=== PATIENT | female | born 1965 | race Caucasian/White ===

== ENCOUNTER 2018-09-18 10:53 | Inpatient (IN) | payer OTHER ==
[2018-09-18 11:20] VITALS: BMI 25.7
--- NOTE | 2018-09-18 14:28 | HP ---
COWS - Scale Resting Pulse: 0= [place] 80 or Below Sweatin= Chills/Flushing Restless Observation: 1= Difficult to Sit Still Pupil Size: 0= Normal to Room Light Bone or Joint Aches: 2= Severe Diffuse Aches Runny Nose/ Eye Tearin= Runny Nose/Eyes GI Upset > 30mins: 2= Nausea/Diarrhea Tremor Observation: 2= Slight Tremor Visible Yawning Observation: 1= 1-2x During Session Anxiety or Irritability: 1=Feels Anxious/Irritable Goose Flesh Skin: 3=Piloerection COWS Score: 15 Admission ROS BHS - HPI Chief Complaint: I want to get off the methadone - my counselor said it was ok - I want to get off the xanax too Allergies/Adverse Reactions: Allergies Allergy/AdvReac Type Severity Reaction Status Date / Time Penicillins Allergy Severe Swelling Verified 09/18/18 14:24 History of Present Illness: 52 yo woman here for detox from xanax and methadone. She is on [facility] Methadone Program, 20mg, last dosed two days ago, wants to be detoxed off the methadone but did not bring a letter from her program, does not have bottle - they are closed now (2:30pm ) and also closed tomorrow ([phone]). I called the [facility] doctor assistant gm of content & delivery to leave a message [phone] about the patient but did not receive a call back. Urine tox + bzo, + methadone. Denies seizures, no overdoses or black outs. Asking for detox from xanax but on valium 5mg tid from psych which she does not abuse (verified by [facility], Rx picked up 08/29/19). States she does not drink alcohol. Discussed with patient we can admit her for methadone detox but it will start tomorrow and she agrees. She states she is compliant with her psych meds. Contact will need to be made with [facility] and her psychiatrist on Thursday to discuss treatment plan especially with regard to the benzodiazepine use. Exam Limitations: Clinical Condition - Ebola screening Have you traveled outside of the country in the last 21 days: No (N) Have you had contact with anyone from an Ebola affected area: No Have you been sick,other than usual withdrawal symptoms: No Do you have a fever: No - Review of Systems Constitutional: Chills, Loss of Appetite, Night Sweats, Changes in sleep, Weakness EENT: reports: Nose Congestion Respiratory: reports: No Symptoms reported Cardiac: reports: No Symptoms Reported GI: reports: Nausea, Poor Appetite : reports: Dysuria Musculoskeletal: reports: Back Pain, Muscle Pain Integumentary: reports: No Symptoms Reported Neuro: reports: Headache, Tremors Endocrine: reports: No Symptoms Reported Hematology: reports: No Symptoms Reported Psychiatric: reports: Judgement Intact, Mood/Affect Appropiate, Orientated x3, Anxious Other Systems: Reviewed and Negative Patient History - Patient Medical History Hx Asthma: No Hx Chronic Obstructive Pulmonary Disease (COPD): No Hx Cancer: No Hx Cardiac Disorders: No Hx Congestive Heart Failure: No Hx Hypertension: No Hx Hypercholesterolemia: No HX Cerebrovascular Accident: No Hx Seizures: No Hx Diabetes: No Hx Gastrointestinal Disorders: No Hx Liver Disease: No Hx Genitourinary Disorders: No Hx Sexually Transmitted Disorders: No Hx Renal Disease (ESRD): No Hx Thyroid Disease: No Hx Human Immunodeficiency Virus (HIV): No Hx Hepatitis C: No Hx Depression: Yes (hospitalized once [facility]) Hx Suicide Attempt: No Hx Bipolar Disorder: Yes - Patient Surgical History Past Surgical History: Yes Hx Abdominal Surgery: Yes (fallopian tubes removed 1998, 1999) - PPD History Previous Implant?: Yes Documented Results: Negative w/o proof Implanted On Prior [facility] Admission?: No PPD to be Administered?: Yes - Reproductive History Patient is a Female of Child Bearing Age (11 -55 yrs old): Yes - Smoking Cessation Smoking history: Current every day smoker Have you smoked in the past 12 months: Yes Aproximately how many cigarettes per day: 5 Hx Chewing Tobacco Use: No Initiated information on smoking cessation: Yes 'Breaking Loose' booklet given: 09/18/18 (give on floor) - Substance & Tx. History Hx Alcohol Use: No Hx Substance Use: Yes Substance Use Type: Heroin, Opiates, Tranquilizers Hx Substance Use Treatment: Yes (methadone program [facility], [facility]) - Substances Abused xanax Route: Oral Frequency: Daily Amount used: two four mg sticks Age of first use: 51 Date of Last Use: 09/17/18 Family Disease History - Family Disease History Family Disease History: Diabetes: Mother (living , ), Other: Father (, murdered), Mother, Brother (one living - healthy), Daughter (age 26, healthy) Admission Physical Exam [facility] - Vital Signs Vital Signs: Vital Signs - 24 hr 09/18/18 11:19 Temperature 98.9 F Pulse Rate 77 Respiratory 18 Rate Blood Pressure 149/80 - Physical General Appearance: Yes: Nourished, Appropriately Dressed, Moderate Distress, Tremorous, Anxious HEENTM: Yes: EOMI, Hearing grossly Normal, Normocephalic, Normal Voice, Pharynx Normal, Nasal Congestion Respiratory: Yes: Normal Breath Sounds, No Respiratory Distress Neck: Yes: No masses,lesions,Nodules Breast: Yes: Breast Exam Deferred Cardiology: Yes: Regular Rhythm, Regular Rate Abdominal: Yes: Soft Genitourinary: Yes: Within Normal Limits Back: Yes: Normal Inspection Musculoskeletal: Yes: full range of Motion, Gait Steady, Back pain Extremities: Yes: Normal Inspection, Normal Range of Motion Neurological: Yes: Fully Oriented, Alert, Motor Strength 5/5, Normal Mood/Affect , Normal Response Integumentary: Yes: Normal Color, Warm Lymphatic: Yes: Within Normal Limits - Diagnostic (1) Opioid dependence with withdrawal Current Visit: Yes Status: Chronic (2) Sedative, hypnotic or anxiolytic dependence with withdrawal, uncomplicated Current Visit: Yes Status: Chronic (3) Nicotine dependence Current Visit: Yes Status: Acute Qualifiers: Nicotine product type: cigarettes Substance use status: uncomplicated Qualified Code(s): F17.210 - Nicotine dependence, cigarettes, uncomplicated Cleared for Admission [facility] - Detox or Rehab [facility] Level of Care: Medically Managed Detox Regimen/Protocol: Methadone Screened but not Admitted - Documentation of Visit Alternative Treatment/Correction Info Provided: Yes [facility] Breath Alcohol Content Breath Alcohol Content: 0 Urine Pregancy Test - Result Urine Test Results: Negative- NO Line Present Urine Drug Screen - Results Drug Screen Negative: No Urine Drug Screen Results: BZO-Benzodiazepines, MTD-Methadone
[2018-09-18] MEDS ORDERED: MAGNESIUM HYDROX 2400MG/30ML ORAL SUSPENSION 30 ML CUP PO PRN (15:31)
[2018-09-18] MEDS ORDERED: MAG HYDROX/AL HYDROX/SIMETH 30 ML UNIT-DOSE CUP PO PRN (15:31)
[2018-09-18] MEDS ORDERED: MENTHOL/PHENOL 1 EACH UD MM PRN (15:31)
[2018-09-18] MEDS ORDERED: LOPERAMIDE HCL 2 MG CAPSULE PO PRN (15:31)
[2018-09-18] MEDS ORDERED: diazePAM 5 MG TABLET PO PRN (15:31)
[2018-09-18] MEDS ORDERED: guaiFENesin/D-METHORPHAN HB 10 ML UNIT-DOSE CUPS PO PRN (15:31)
[2018-09-18] MEDS ORDERED: P-EPHED 60MG/TRIPROLIDI 2.5MG TABLET PO PRN (15:31)
[2018-09-18] MEDS ORDERED: IBUPROFEN 400 MG TABLET (FP) PO PRN (15:31)
[2018-09-18] MEDS ORDERED: MAGNESIUM CITRATE 300 ML BOTTLE PO PRN (15:31)
[2018-09-18] MEDS ORDERED: diazePAM 5 MG TABLET PO ONE (17:15)
[2018-09-18] MEDS: diazePAM 5 MG TABLET PO SCH ×2 (18:58→22:29)
[2018-09-18] MEDS: NICOTINE 21 MG/24 HOURS TOPICAL PATCH TD SCH (18:58)
[2018-09-18] MEDS ORDERED: NICOTINE POLACRILEX 2 MG GUM BUC PRN (19:15)
[2018-09-18] MEDS ORDERED: METHADONE HCL 10 MG TABLET (FOR DETOX USE ONLY) PO ONE ×2 (21:53→23:00)
--- NOTE | 2018-09-18 21:56 | PN ---
[facility] Progress Note Note: methadone detox orders changed to start today/ now. ldm was methadone 20 mg on 09/16/2018 confirmed by rn Haleigh pompa w/ [facility] patient reconfirmed that she wants to be detoxed off her methadone
[2018-09-18] MEDS ORDERED: MELATONIN 5 MG TABLETS PO PRN (22:00)
[2018-09-18] MEDS: MIRTAZAPINE 15 MG TABLET (FP) PO SCH (22:29)
[2018-09-18] MEDS: LITHIUM CARBONATE 300 MG CAPSULE (FP) PO SCH (22:29)
[2018-09-18] MEDS: THIAMINE HCL 100 MG TABLET (FP) PO SCH (22:30)
[2018-09-19] MEDS: diazePAM 5 MG TABLET PO SCH ×3 (06:00→22:43)
[2018-09-19] MEDS ORDERED: METHADONE HCL 10 MG TABLET (FOR DETOX USE ONLY) PO SCH (10:00)
[2018-09-19] MEDS ORDERED: METHADONE HCL 10 MG TABLET (FOR DETOX USE ONLY) PO ONE (10:00)
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
[2018-09-19 10:57] LABS: HEMATOCRIT 42.2 % (32.4-45.2); HEMOGLOBIN 13.4 GM/dL (10.7-15.3); MCH 27.4 pg (25.7-33.7); MCHC 31.6 g/dl (32.0-36.0); MEAN CELL VOLUME 86.6 fl (80-96); MEAN PLT VOLUME 7.9 fl (7.5-11.1); PLATELET COUNT 291 K/MM3 (134-434); RBC 4.88 M/mm3 (3.60-5.2); RDW 13.8 % (11.6-15.6); WHITE BLOOD COUNT 7.3 K/mm3 (4.0-10.0)
[2018-09-19 11:06] LABS: ALBUMIN 3.5 g/dl (3.4-5.0); ALK PHOS 78 U/L (45-117); ANION GAP 5 MMOL/L (8-16); BILIRUBIN,TOTAL 0.6 mg/dL (0.2-1); BLOOD UREA NITROGEN 16 mg/dL (7-18); CHLORIDE 105 mmol/L (98-107); CO2 27 mmol/L (21-32); CREATININE 0.8 mg/dL (0.55-1.3); GLUCOSE,RANDOM 122 mg/dL (74-106); POTASSIUM 4.1 mmol/L (3.5-5.1); SGOT/AST 10 U/L (15-37); SGPT/ALT 23 U/L (13-61); SODIUM 137 mmol/L (136-145); TOT PROT 6.4 g/dl (6.4-8.2)
[2018-09-19] MEDS: PRENATAL VITAMINS W/ FOLIC ACID TABLET (FP) PO SCH (11:30)
[2018-09-19] MEDS: NICOTINE 21 MG/24 HOURS TOPICAL PATCH TD SCH (11:30)
[2018-09-19] MEDS: ACETAMINOPHEN 325 MG TABLET (FP) PO PRN (11:32)
[2018-09-19] MEDS: LITHIUM CARBONATE 300 MG CAPSULE (FP) PO SCH ×2 (12:36→22:43)
--- NOTE | 2018-09-19 14:24 | PN ---
[facility] CIWA - CIWA Score Nausea/Vomitin-No Nausea/No Vomiting Muscle Tremors: 3 Anxiety: 3 Agitation: 3 Paroxysmal Sweats: 1-Minimal Palms Moist Orientation: 1-Uncertain about Date Tacttile Disturbances: 0-None Auditory Disturbances: 0-None Visual Disturbances: 0-None Headache: 2-Mild CIWA-Ar Total Score: 13 [facility]HS COWS - Scale Resting Pulse: 0= [place] 80 or Below Sweatin= Chills/Flushing Restless Observation: 1= Difficult to Sit Still Pupil Size: 0= Normal to Room Light Bone or Joint Aches: 1= Mild Discomfort Runny Nose/ Eye Tearin= Nasal Congestion GI Upset > 30mins: 2= Nausea/Diarrhea Tremor Observation of Outstretched Hands: 2= Slight Tremor Visible Yawning Observation: 1= 1-2x During Session Anxiety or Irritability: 1=Feels Anxious/Irritable Goose Flesh Skin: 0=Smooth Skin COWS Score: 10 [facility] Progress Note (SOAP) Subjective: patient is able to describe her feelings toward addiction to xanax and methadone patient said that she is on methadone program for a long time and is doing very well and is time to off the methadone patient fears of xanax addiction combination of bipolar disorder that anxiety and depression conquer her will to be sobered reported sweating tremor anxiety and restlessness took a shower and feeling calm patient stated that she will never hurt herself that "I will never do that to my mother" Objective: 09/19/18 14:34 Vital Signs Temperature 97.7 F 09/19/18 09:58 Pulse Rate 60 09/19/18 09:58 Respiratory Rate 18 09/19/18 09:58 Blood Pressure 122/56 L 09/19/18 09:58 O2 Sat by Pulse Oximetry (%) Laboratory Last Values WBC 7.3 K/mm3 (4.0-10.0) 09/19/18 07:50 RBC 4.88 M/mm3 (3.60-5.2) 09/19/18 07:50 Hgb 13.4 GM/dL (10.7-15.3) 09/19/18 07:50 Hct 42.2 % (32.4-45.2) 09/19/18 07:50 MCV 86.6 fl (80-96) 09/19/18 07:50 MCH 27.4 pg (25.7-33.7) 09/19/18 07:50 MCHC 31.6 g/dl (32.0-36.0) L 09/19/18 07:50 RDW 13.8 % (11.6-15.6) 09/19/18 07:50 Plt Count 291 K/MM3 (134-434) 09/19/18 07:50 MPV 7.9 fl (7.5-11.1) 09/19/18 07:50 Sodium 137 mmol/L (136-145) 09/19/18 07:50 Potassium 4.1 mmol/L (3.5-5.1) 09/19/18 07:50 Chloride 105 mmol/L (98-107) 09/19/18 07:50 Carbon Dioxide 27 mmol/L (21-32) 09/19/18 07:50 Anion Gap 5 MMOL/L (8-16) L 09/19/18 07:50 BUN 16 mg/dL (7-18) 09/19/18 07:50 Creatinine 0.8 mg/dL (0.55-1.3) 09/19/18 07:50 Creat Clearance w eGFR > 60 (>60) 09/19/18 07:50 Random Glucose 122 mg/dL (74-106) H 09/19/18 07:50 Calcium 9.0 mg/dL (8.5-10.1) 09/19/18 07:50 Total Bilirubin 0.6 mg/dL (0.2-1) 09/19/18 07:50 AST 10 U/L (15-37) L 09/19/18 07:50 ALT 23 U/L (13-61) 09/19/18 07:50 Alkaline Phosphatase 78 U/L (45-117) 09/19/18 07:50 Total Protein 6.4 g/dl (6.4-8.2) 09/19/18 07:50 Albumin 3.5 g/dl (3.4-5.0) 09/19/18 07:50 RPR Titer Nonreactive (NONREACTIVE) 09/19/18 07:50 lab noted Assessment: 09/19/18 14:40 withdrawal sx Plan: continue detox flu shot
[2018-09-19] MEDS ORDERED: FLU VACCINE QUAD 60 MCG/0.5 ML (MDV 18-19) IM ONE ×2 (14:30→15:00)
[2018-09-19] MEDS: MIRTAZAPINE 15 MG TABLET (FP) PO SCH (22:43)
[2018-09-19] MEDS: THIAMINE HCL 100 MG TABLET (FP) PO SCH (22:44)
[2018-09-20] MEDS: ACETAMINOPHEN 325 MG TABLET (FP) PO PRN (09:04)
[2018-09-20] MEDS ORDERED: METHADONE HCL 5 MG TABLET (FOR DETOX USE ONLY) PO SCH (10:00)
[2018-09-20] MEDS ORDERED: METHADONE HCL 5 MG TABLET (FOR DETOX USE ONLY) PO ONE (10:00)
[2018-09-20] MEDS: diazePAM 5 MG TABLET PO SCH ×2 (10:57→22:35)
[2018-09-20] MEDS: NICOTINE 21 MG/24 HOURS TOPICAL PATCH TD SCH (10:57)
[2018-09-20] MEDS: PRENATAL VITAMINS W/ FOLIC ACID TABLET (FP) PO SCH (10:57)
[2018-09-20] MEDS: LITHIUM CARBONATE 300 MG CAPSULE (FP) PO SCH ×2 (10:57→22:53)
--- NOTE | 2018-09-20 11:11 | PN ---
[facility] CIWA - CIWA Score Nausea/Vomitin-No Nausea/No Vomiting Muscle Tremors: 3 Anxiety: 3 Agitation: 3 Paroxysmal Sweats: 3 Orientation: 0-Oriented Tacttile Disturbances: 0-None Auditory Disturbances: 0-None Visual Disturbances: 0-None Headache: 0-None Present CIWA-Ar Total Score: 12 S COWS - Scale Resting Pulse: 0= [place] 80 or Below Sweatin=Flushed/Facial Moisture Restless Observation: 1= Difficult to Sit Still Pupil Size: 0= Normal to Room Light Bone or Joint Aches: 1= Mild Discomfort Runny Nose/ Eye Tearin= Runny Nose/Eyes GI Upset > 30mins: 0= None Tremor Observation of Outstretched Hands: 1= Tremor [place], Not Seen Yawning Observation: 1= 1-2x During Session Anxiety or Irritability: 2=Irritable/Anxious Goose Flesh Skin: 0=Smooth Skin COWS Score: 10 [facility] Progress Note (SOAP) Subjective: agitation sweats body aches low back pain anxiety interrupted sleep Objective: 09/20/18 11:10 Vital Signs Temperature 98.2 F 09/20/18 09:24 Pulse Rate 63 09/20/18 09:24 Respiratory Rate 16 09/20/18 09:24 Blood Pressure 113/76 09/20/18 09:24 O2 Sat by Pulse Oximetry (%) Laboratory Tests 09/19/18 09/19/18 09/19/18 07:50 07:50 07:50 WBC 7.3 RBC 4.88 Hgb 13.4 Hct 42.2 MCV 86.6 MCH 27.4 MCHC 31.6 L RDW 13.8 Plt Count 291 MPV 7.9 Sodium 137 Potassium 4.1 Chloride 105 Carbon Dioxide 27 Anion Gap 5 L BUN 16 Creatinine 0.8 Creat Clearance w eGFR > 60 Random Glucose 122 H Calcium 9.0 Total Bilirubin 0.6 AST 10 L ALT 23 Alkaline Phosphatase 78 Total Protein 6.4 Albumin 3.5 RPR Titer Nonreactive aaox3 ambulating no acute distress Assessment: 09/20/18 11:10 withdrawal sx Plan: continue detox increase fluids lidocaine patch baclofen motrin 800mg prn
[2018-09-20] MEDS: LIDOCAINE 5% TOPICAL PATCH TP SCH (12:05)
[2018-09-20] MEDS: BACLOFEN 10 MG TABLET (FP) PO SCH ×2 (15:06→22:35)
[2018-09-20] MEDS: THIAMINE HCL 100 MG TABLET (FP) PO SCH (22:34)
[2018-09-20] MEDS: MIRTAZAPINE 15 MG TABLET (FP) PO SCH (22:35)
[2018-09-20] MEDS: IBUPROFEN 400 MG TABLET (FP) PO PRN (22:35)
[2018-09-20] MEDS: LIDOCAINE PATCH REMOVAL MC SCH (22:35)
[2018-09-21] MEDS: BACLOFEN 10 MG TABLET (FP) PO SCH ×3 (07:41→22:24)
[2018-09-21] MEDS ORDERED: METHADONE HCL 5 MG TABLET (FOR DETOX USE ONLY) PO ONE (10:00)
[2018-09-21] MEDS: NICOTINE 21 MG/24 HOURS TOPICAL PATCH TD SCH (11:18)
[2018-09-21] MEDS: diazePAM 5 MG TABLET PO SCH ×2 (11:18→22:23)
[2018-09-21] MEDS: LIDOCAINE 5% TOPICAL PATCH TP SCH (11:19)
[2018-09-21] MEDS: LITHIUM CARBONATE 300 MG CAPSULE (FP) PO SCH ×2 (11:19→22:23)
[2018-09-21] MEDS: PRENATAL VITAMINS W/ FOLIC ACID TABLET (FP) PO SCH (11:20)
--- NOTE | 2018-09-21 15:07 | PN ---
[facility] Progress Note (SOAP) Subjective: shakes sweats interrupted sleep chills Objective: 09/21/18 15:07 Vital Signs Temperature 98.2 F 09/21/18 13:53 Pulse Rate 69 09/21/18 13:53 Respiratory Rate 18 09/21/18 13:53 Blood Pressure 140/81 09/21/18 13:53 O2 Sat by Pulse Oximetry (%) aaox3 ambulating no acute distress Assessment: 09/21/18 15:07 withdrawal sx Plan: continue detox increase fluids
[2018-09-21] MEDS: THIAMINE HCL 100 MG TABLET (FP) PO SCH (22:23)
[2018-09-21] MEDS: IBUPROFEN 400 MG TABLET (FP) PO PRN (22:24)
[2018-09-21] MEDS: LIDOCAINE PATCH REMOVAL MC SCH (22:24)
[2018-09-21] MEDS: MIRTAZAPINE 15 MG TABLET (FP) PO SCH (22:24)
[2018-09-22] MEDS: BACLOFEN 10 MG TABLET (FP) PO SCH ×3 (07:19→22:41)
[2018-09-22] MEDS ORDERED: METHADONE HCL 10 MG TABLET (FOR DETOX USE ONLY) PO ONE (10:00)
[2018-09-22] MEDS ORDERED: diazePAM 5 MG TABLET PO SCH (10:00)
[2018-09-22] MEDS ORDERED: METHADONE HCL 10 MG TABLET (FOR DETOX USE ONLY) PO SCH (10:00)
[2018-09-22] MEDS: NICOTINE 21 MG/24 HOURS TOPICAL PATCH TD SCH (10:32)
[2018-09-22] MEDS: LITHIUM CARBONATE 300 MG CAPSULE (FP) PO SCH ×2 (10:32→22:37)
[2018-09-22] MEDS: PRENATAL VITAMINS W/ FOLIC ACID TABLET (FP) PO SCH (10:32)
[2018-09-22] MEDS: LIDOCAINE 5% TOPICAL PATCH TP SCH (10:33)
--- NOTE | 2018-09-22 14:12 | PN ---
[facility] Progress Note (SOAP) Subjective: chills sweats Objective: 09/22/18 14:12 Vital Signs Temperature 98.2 F 09/22/18 13:59 Pulse Rate 66 09/22/18 13:59 Respiratory Rate 16 09/22/18 13:59 Blood Pressure 135/71 09/22/18 13:59 O2 Sat by Pulse Oximetry (%) aaox3 ambulating no acute distress Assessment: 09/22/18 14:12 mild withdrawal sx Plan: continue detox d/c in am
[2018-09-22] MEDS: MIRTAZAPINE 15 MG TABLET (FP) PO SCH (22:37)
[2018-09-22] MEDS: IBUPROFEN 400 MG TABLET (FP) PO PRN (22:38)
[2018-09-22] MEDS: THIAMINE HCL 100 MG TABLET (FP) PO SCH (22:38)
[2018-09-22] MEDS: LIDOCAINE PATCH REMOVAL MC SCH (22:41)
--- NOTE | 2018-09-22 23:10 | PN ---
S Progress Note (SOAP) Subjective: States vaginal bleeding x 3 days. Denies vaginal or abd pain. States has had removal of both fallopian tubes. Denies dizziness. 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 Steady on feet. Abdomen S/NT/BS + Sanitary pad w/ dark red blood. No clots seen. Vital Signs 09/22/18 09/22/18 18:31 22:12 Temperature 98.2 F 98.1 F Pulse Rate 79 65 Respiratory 16 16 Rate Blood Pressure 127/67 146/71 Assessment: Vaginal bleeding . Opiate withdrawal Plan: Patient instructed to notify staff of any increase in bleeding. Encouraged to f/u upon discharge. Repeat B/P and Pulse Q4H x 2.
[2018-09-23] MEDS ORDERED: METHADONE HCL 5 MG TABLET (FOR DETOX USE ONLY) PO ONE (06:00)
[2018-09-23] MEDS ORDERED: METHADONE HCL 5 MG TABLET (FOR DETOX USE ONLY) PO SCH (06:00)
[2018-09-23] MEDS: ACETAMINOPHEN 325 MG TABLET (FP) PO PRN (06:23)
[2018-09-23] MEDS: BACLOFEN 10 MG TABLET (FP) PO SCH (06:25)
--- NOTE | 2018-09-23 09:15 | DS ---
[facility] Detox Discharge Summary Admission Date: 09/18/18 Discharge Date: 09/23/18 - History Present History: Alcohol Dependence - Physical Exam Results Vital Signs: Vital Signs Temperature 97.7 F 09/23/18 08:13 Pulse Rate 55 L 09/23/18 08:13 Respiratory Rate 16 09/23/18 08:13 Blood Pressure 131/64 09/23/18 08:13 O2 Sat by Pulse Oximetry (%) - Treatment Hospital Course: Detox Protocol Followed, Detoxed Safely, Responded well, Discharged Condition Good, Rehab Referral Accepted - Medication Discharge Medications: Ambulatory Orders Diazepam [Valium] 5 mg PO Q8H 09/18/18 Hydroxyzine HCl 25 mg PO BID PRN 09/18/18 [place] Carbonate [Eskalith -] 300 mg PO BID 09/18/18 Methadone [Dolophine -] 20 mg PO DAILY 09/18/18 Mirtazapine [Remeron -] 15 mg PO HS 09/18/18 - Diagnosis (1) Bipolar disorder Current Visit: Yes Status: Acute (2) Nicotine dependence Current Visit: Yes Status: Chronic Qualifiers: Nicotine product type: cigarettes Substance use status: uncomplicated Qualified Code(s): F17.210 - Nicotine dependence, cigarettes, uncomplicated (3) Sedative, hypnotic or anxiolytic dependence with withdrawal, uncomplicated Current Visit: Yes Status: Chronic (4) Substance induced mood disorder Current Visit: Yes Status: Acute (5) Substance-induced sleep disorder Current Visit: Yes Status: Acute (6) Vagina bleeding Current Visit: Yes Status: Acute (7) Opioid dependence with withdrawal Current Visit: Yes Status: Chronic - AMA Did Patient Leave Against Medical Advice: No ([facility]
[2018-09-23 09:39] VITALS: BP 126/50; PULSE 59; TEMP 98.2
[2018-09-23] MEDS: LITHIUM CARBONATE 300 MG CAPSULE (FP) PO SCH (10:37)
[2018-09-23] MEDS: PRENATAL VITAMINS W/ FOLIC ACID TABLET (FP) PO SCH (10:38)
== END 2018-09-23 11:03 | disposition home or self-care (01) | DRG 773 ==
LOC: YASAS 10:53 → Y6N 16:56
PROC: HZ2ZZZZ Detoxification Services for Substance Abuse Treatment (ICD-10-PCS; principal; 2018-09-18)
DX: F11.23 Opioid dependence with withdrawal (principal); F13.230 Sedative, hypnotic or anxiolytic dependence with withdrawal, uncomplicated; F17.210 Nicotine dependence, cigarettes, uncomplicated; F19.24 Other psychoactive substance dependence with psychoactive substance-induced mood disorder; F19.282 Other psychoactive substance dependence with psychoactive substance-induced sleep disorder; F31.9 Bipolar disorder, unspecified; N93.9 Abnormal uterine and vaginal bleeding, unspecified; Z88.0 Allergy status to penicillin
CPT/HCPCS: 36415; 80053; 80178; 85027; 86593; 90688; G0008; J0475